=== PATIENT | female | born 1960 | race Hispanic/Latino ===

== ENCOUNTER 2016-11-24 23:20 | Emergency (ER) | payer OTHER ==
[~2016-11-24] VITALS: Ht 154.9 cm; Wt 79.2 kg
[2016-11-25 02:56] VITALS: BP 135/89
== END 2016-11-25 02:56 | disposition home or self-care (01) ==
LOC: EME 23:20 → EXP 23:20
DX: S61.307A Unspecified open wound of left little finger with damage to nail, initial encounter (principal); X58.XXXA Exposure to other specified factors, initial encounter
CPT/HCPCS: 99281; 99283